=== PATIENT | male | born 1985 | race Caucasian/White ===

== ENCOUNTER 2018-01-15 17:48 | Emergency (ER) | payer SELFPAY ==
[~2018-01-15] VITALS: Ht 182.9 cm; Wt 63.5 kg
[2018-01-15] MEDS ORDERED: ONDANSETRON HCL INJ 2 MG/ML VIAL IV STA (18:02)
[2018-01-15] MEDS ORDERED: MORPHINE SULFATE 2 MG/ML SYR IV STA (18:02)
[2018-01-15] MEDS ORDERED: SODIUM CHLORIDE 0.9% 1000ML 1,000 ML IV SCH ×2 (18:15→19:00)
[2018-01-15 18:25] LABS: BASOPHILS # (AUTO) 0.1 (0.0-0.1); EOSINOPHILS # (AUTO) 0.6 (0.0-0.4); EOSINOPHILS % 9.7 % (0.0-6.0); HEMATOCRIT 36.1 % (38.2-49.6); HEMOGLOBIN 12.9 g/dL (14.0-18.0); LYMPHOCYTES # (AUTO) 2.7 (1.0-3.2); LYMPHOCYTES % 41.7 % (18.0-39.1); MEAN CORPUSCULAR HEMOGLOBIN 32.2 pg (28-32); MEAN CORPUSCULAR HGB CONC 35.7 g/dL (31-35); MONOCYTES # (AUTO) 0.7 (0.2-0.8); NEUTROPHILS # (AUTO) 2.4 (2.1-6.9); NEUTROPHILS % 36.1 % (38.7-80.0); PLATELET COUNT 249 x10e3/uL (140-360); RED BLOOD COUNT 4.01 x10e6/uL (4.3-5.7); RED CELL DISTRIBUTION WIDTH 11.7 % (11.7-14.4)
[2018-01-15 18:41] LABS: ALANINE AMINOTRANSFERASE 14 IU/L (0-55); ALBUMIN 3.3 g/dL (3.5-5.0); ALBUMIN/GLOBULIN RATIO 1.1 (0.8-2.0); ALKALINE PHOSPHATASE 53 IU/L (40-150); ANION GAP 13.5 mmol/L (8-16); BLOOD UREA NITROGEN 22 mg/dL (7-26); BUN/CREATININE RATIO 31 (6-25); CALCIUM 9.2 mg/dL (8.4-10.2); CARBON DIOXIDE 27 mmol/L (22-29); CHLORIDE 96 mmol/L (98-107); CREATINE KINASE 35 IU/L (30-200); CREATININE, SERUM 0.71 mg/dL (0.72-1.25); EST GLOMERULAR FILTRATION RATE > 60 ML/MIN (60-); GLUCOSE 181 mg/dL (74-118); POTASSIUM 3.5 mmol/L (3.5-5.1); SODIUM 133 mmol/L (136-145)
--- NOTE | 2018-01-15 18:51 | Diagnostic Imaging Report ---
EXAMINATION: Head CT HISTORY: Syncope COMPARISON: None. TECHNIQUE: Multidetector axial images were obtained without contrast from the foramen magnum to the vertex . The images were reconstructed using brain and bone algorithms. Thin section brain images were reformatted into coronal and sagittal planes. Intravenous contrast: None. Image quality: Motion/streaking artifact limits the evaluation of the skull base and posterior cranial fossa. FINDINGS: Parenchyma: 1. No abnormal densities. 2. No mass or hemorrhage. No CT evidence of acute territorial vascular insult. Extra-axial spaces:No abnormal density. No extra-axial fluid collections Brain volume: Normal for age. Ventricles: No hydrocephalus or displacement. Arteries: No density suggestive of thrombus. Dural sinuses: No abnormal density. Extra-axial spaces: No abnormal density. Foramen magnum: No mass, Chiari malformation, or basilar invagination. Sella: No obvious mass. Paranasal/mastoid sinuses: Imaged portions unremarkable. Skull/Scalp: No lytic or blastic lesions. No fractures. IMPRESSION: Normal head CT. Signed by: Dr. Inez Gamboa M.D. on 01/15/2018 6:48 PM
--- NOTE | 2018-01-15 18:55 | Diagnostic Imaging Report ---
EXAMINATION: CHEST SINGLE (PORTABLE) COMPARISON: None INDICATION: Syncope, fall DISCUSSION: Frontal view of the chest obtained at 1826 hours. HEART AND MEDIASTINUM: The cardiomediastinal silhouette is unremarkable. LINES: None. LUNGS: The lungs are well inflated and clear. No pneumonia or pulmonary edema. PLEURA: No pleural effusion or pneumothorax. BONES AND SOFT TISSUES: No fracture or focal osseous lesion.. The soft tissues are normal. IMPRESSION: No acute traumatic pathology by x-ray. Signed by: Dr. Tarsha Humphrey MD on 01/15/2018 6:52 PM
--- NOTE | 2018-01-15 18:57 | Diagnostic Imaging Report ---
Ankle complete CPT CODE: 34235 HISTORY: Fall, ankle pain TECHNIQUE: Three views right ankle obtained COMPARISON: None. FINDINGS: The distal tibia and fibula appear intact. Ankle mortise remains symmetric. No soft tissue swelling about malleoli. No tibiotalar effusion. The talar dome is smooth. The calcaneus appears intact. The visualized portions of the midfoot and forefoot are intact. IMPRESSION: No evidence of acute fracture or dislocation involving the ankle. Signed by: Dr. Tarsha Humphrey MD on 01/15/2018 6:54 PM
[2018-01-15] MEDS ORDERED: KETOROLAC TROMETHAMINE 30 MG/ML VIAL IV STA (19:27)
[2018-01-15] MEDS ORDERED: SODIUM CHLORIDE 0.9% 1000ML 1,000 ML IV ONE (20:15)
[2018-01-15 21:44] VITALS: BP 130/94
== END 2018-01-15 21:50 | disposition home or self-care (01) ==
LOC: ER 17:48
DX: R55 Syncope and collapse (principal); E86.1 Hypovolemia; K52.9 Noninfective gastroenteritis and colitis, unspecified; E11.9 Type 2 diabetes mellitus without complications
CPT/HCPCS: 36415; 70450; 71045; 73610; 80053; 80320; 82550; 82553; 82948; 84484; 85025; 93005; 99284; J1885; J2270; J2405; J7030